=== PATIENT | male | born 1950 | race Caucasian/White ===

== ENCOUNTER → 2018-11-02 | Outpatient (CLI) | payer MEDICARE ==
[~2018-11-02] MED LIST: AMLO10TA6 PO; ESOM20CA PO; FINA5TAB PO; HYDR1TAB12 PO; NAPR-850 PO; Super Beta Prostate PO; [UNRECOGNIZED DRUG - OTHER]
== END | disposition home or self-care (01) ==
LOC: RAD 09:00
PROVIDERS: ATTEND Specialist
DX: Z02.9 Encounter for administrative examinations, unspecified (principal)

== ENCOUNTER 2019-06-13 07:40 | Outpatient (CLI) | payer MEDICARE ==
[~2019-06-13] VITALS: Ht 182.9 cm; Wt 98.4 kg
[2019-06-13 08:30] VITALS: BP 134/77
== END 2019-06-13 23:59 | disposition home or self-care (01) ==
LOC: INFUSION 07:40
PROVIDERS: ATTEND Specialist
DX: G61.81 Chronic inflammatory demyelinating polyneuritis (principal)
CPT/HCPCS: 96365; 96366; J1561